=== PATIENT | male | born 1975 ===

== ENCOUNTER 2024-08-06 11:15 | Inpatient (IN) | payer OTHER ==
[~2024-08-06] VITALS: Ht 180.3 cm; Wt 102.1 kg
[2024-08-06 12:47] VITALS: BP 160/102
[2024-08-06 13:38] LABS: COVID-19 AG NEGATIVE (NEGATIVE)
[2024-08-06 14:50] LABS: RH NEGATIVE
[2024-08-14] MEDS ORDERED: CEFAZOLIN SODIUM 1,000 MG VIAL ONE (13:48)
[2024-08-14] MEDS ORDERED: TRANEXAMIC ACID 100MG/1ML (1000MG) AMPUL IV ONE (14:51)
[2024-08-14] MEDS ORDERED: POVIDONE-IODINE 118 ML BOTT TOP ONE (15:53)
[2024-08-14] MEDS ORDERED: HYDROGEN PEROXIDE 473 ML BOTTLE TOP ONE (16:50)
[2024-08-14] MEDS ORDERED: EPINEPHRINE HCL/PF 1 MG/ML AMPUL ONE (17:21)
[2024-08-14] MEDS ORDERED: OxyCODONE HCL 5 MG TABLET (ROXICODONE) PO PRN (19:15)
[2024-08-14] MEDS ORDERED: SODIUM CHLORIDE 0.45 % 1,000 ML IV SCH (19:15)
[2024-08-14] MEDS ORDERED: MORPHINE SULFATE 4 MG/ML CARTRIDGE IV PRN (19:15)
[2024-08-14] MEDS ORDERED: ONDANSETRON HCL 2 MG/ML VIAL IV PRN (19:15)
[2024-08-14 20:53] VITALS: BP 141/87; O2SAT 100
[2024-08-14] MEDS ORDERED: CELECOXIB 200 MG CAPSULE PO SCH (21:00)
[2024-08-15] MEDS ORDERED: ACETAMINOPHEN 500 MG GEL..CAP PO SCH
[2024-08-15 00:25] VITALS: BP 124/79; O2SAT 98
[2024-08-15] MEDS ORDERED: GABAPENTIN 300 MG CAPSULE PO SCH (01:00)
[2024-08-15] MEDS ORDERED: CEFAZOLIN SODIUM 1,000 MG VIAL IV SCH (01:00)
[2024-08-15 06:27] LABS: HEMATOCRIT 37.1 % (39.0-48.0); HEMOGLOBIN 12.6 g/dL (13-16.00); MEAN CELL VOLUME 82.6 fL (80.0-100.00); MEAN CORPUSCULAR HEMOGLOBIN 28.1 pg (27.00-32.0); PLATELET COUNT 325 K/uL (150-450); RED BLOOD COUNT 4.49 M/uL (4.00-6.00); RED CELL DISTRIBUTION WIDTH 13.3 % (11.5-14.5)
[2024-08-15] MEDS ORDERED: ASA325 M1 PO (08:08)
[2024-08-15] MEDS ORDERED: DUI500 PO (08:08)
[2024-08-15] MEDS ORDERED: PERCOCET 5-3251 EACH PO (08:08)
[2024-08-15 08:49] VITALS: BP 129/74; O2SAT 98
[2024-08-15] MEDS ORDERED: APIXABAN 2.5 MG TABLET PO SCH (09:00)
[2024-08-15] MEDS ORDERED: LOSARTAN POTASSIUM 25 MG TABLET PO SCH (09:00)
[2024-08-15] MEDS ORDERED: SENNOSIDES 1 TAB TABLET PO SCH (09:00)
[2024-08-16] MEDS ORDERED: IRON FUM,PS/FOLIC ACID/VITC/B3 1 CAP CAPSULE PO SCH (09:00)
== END 2024-08-15 10:57 | disposition home or self-care (01) | DRG 470 ==
LOC: O/R 08-14 06:07 → SURH 08-14 10:45 → SURG 08-14 16:14
PROVIDERS: ADMIT Orthopaedic Surgery; ATTEND Orthopaedic Surgery
PROC: 0MTM0ZZ Resection of Left Hip Bursa and Ligament, Open Approach (ICD-10-PCS; 2024-08-14)
PROC: 0Q870ZZ Division of Left Upper Femur, Open Approach (ICD-10-PCS; 2024-08-14)
PROC: 0SRB02Z Replacement of Left Hip Joint with Metal on Polyethylene Synthetic Substitute, Open Approach (ICD-10-PCS; principal; 2024-08-14 10:45)
DX: M16.12 Unilateral primary osteoarthritis, left hip (principal)